=== PATIENT | male | born 1995 | race African-American/Black ===

== ENCOUNTER 2021-06-24 18:00 | Outpatient (CLI) | payer BC | END 2021-06-24 18:01 | disposition home or self-care (01) | LOC: SLEEPLAB 18:00 | PROVIDERS: ATTEND Family Medicine | DX: G47.10 Hypersomnia, unspecified (principal); G47.33 Obstructive sleep apnea (adult) (pediatric); E66.9 Obesity, unspecified; J45.909 Unspecified asthma, uncomplicated; G47.00 Insomnia, unspecified; G47.31 Primary central sleep apnea; R09.02 Hypoxemia; Z68.41 Body mass index [BMI] 40.0-44.9, adult | CPT/HCPCS: 95806 ==